=== PATIENT | female | born 1990 | race Caucasian/White ===

== ENCOUNTER → 2022-12-06 | Outpatient (CLI) | payer OTHER, SELFPAY ==
[2022-12-10 06:06] LABS: Chlamydia By Nucleic Acid AMP Negative (Negative); Gonococcus By Nucleic Acid AMP Negative (Negative)
== END | disposition home or self-care (01) ==
PROVIDERS: Visit Provider Advanced Practice Midwife
DX: Z11.3 Encounter for screening for infections with a predominantly sexual mode of transmission (principal)
CPT/HCPCS: 87070; 87205; 87491; 87591